=== PATIENT | female | born 1955 | race Caucasian/White ===

== ENCOUNTER 2016-11-15 02:20 | Inpatient (IN) | payer OTHER ==
[~2016-11-15] VITALS: Ht 152.4 cm; Wt 66.7 kg
[~2016-11-15 02:20] MED LIST: AMLODIPINE5 M1 PO; ASPIR 8181 MG PO; ATENOLOL100 MG PO; AUG500 PO; AUGMENTIN PO; COZAAR50 MG PO; LIPITOR80 MG PO; ULT50 PO
[2016-11-15 03:59] LABS: PLATELET COUNT 271 x10^3mcL (130-400)
[2016-11-15 04:02] LABS: BASOPHIL % 0.2 % (0-2); RED CELL DISTRIBUTION WIDTH 13.2 % (11.5-14.5)
[2016-11-15 04:10] LABS: CALCIUM 9.7 mg/dL (8.5-10.1); CARBON DIOXIDE 29.6 mmol/L (21-32); CHLORIDE SERUM 104 mmol/L (98-107); CREATININE SERUM 0.5 mg/dL (0.6-1.0); GFR1 > 60 mL/min; GLUCOSE SERUM 101 mg/dL (74-106); POTASSIUM SERUM 3.7 mmol/L (3.5-5.1); SODIUM SERUM 140 mmol/L (136-145)
[2016-11-15 04:14] LABS: ALKALINE PHOSPHATASE 87 U/L (46-116); ALT/SGPT 26 U/L (14-59); AST/SGOT 24 U/L (15-37); BILIRUBIN TOTAL 0.54 mg/dL (0.20-1.00); LIPASE 148 IU/L (73-393); TOTAL PROTEIN, SERUM 6.8 g/dL (6.4-8.2)
[2016-11-15 04:19] LABS: microscopic required? YES; urine erythrocyte TRACE (NEGATIVE)
[2016-11-15 04:22] LABS: ALBUMIN 3.1 g/dL (3.4-5.0)
[2016-11-15 06:41] VITALS: BP 131/65
[2016-11-15 07:12] LABS: T3 TOTAL 6.52 ng/mL
[2016-11-15 07:13] LABS: CHOLESTEROL/HDL RATIO 1.9
[2016-11-15 08:04] VITALS: BP 129/66
[2016-11-15 09:13] LABS: FREE T4 11.43 ng/dL (0.76-1.46); FREE THYROXINE INDEX 12.7 ug/dL (1.4-4.5)
[2016-11-15 09:14] LABS: T4(THYROXINE) 26.4 ug/dL (4.7-13.3)
[2016-11-15 14:00] VITALS: BP 135/73
[2016-11-15 17:33] LABS: IRON 26 ug/dL (50-170); TOTAL IRON BINDING CAPACITY 235 ug/dL (250-450)
[2016-11-15 18:30] VITALS: BP 157/77
[2016-11-16 05:52] VITALS: BP 132/67
[2016-11-16 06:30] LABS: BASOPHIL % 0.4 % (0-2); PLATELET COUNT 222 x10^3mcL (130-400); RED CELL DISTRIBUTION WIDTH 13.1 % (11.5-14.5)
[2016-11-16 06:58] LABS: CALCIUM 8.9 mg/dL (8.5-10.1); CHLORIDE SERUM 107 mmol/L (98-107); CREATININE SERUM 0.4 mg/dL (0.6-1.0); GFR1 > 60 mL/min; GLUCOSE SERUM 81 mg/dL (74-106); MAGNESIUM 1.4 mg/dL (1.8-2.4); PHOSPHOROUS 4.8 mg/dL (2.5-4.9); POTASSIUM SERUM 3.3 mmol/L (3.5-5.1); SODIUM SERUM 143 mmol/L (136-145)
[2016-11-16 09:27] VITALS: BP 127/67
[2016-11-16 14:53] VITALS: BP 128/60
[2016-11-16 16:30] VITALS: BP 129/64
[2016-11-16 20:05] VITALS: BP 134/73
[2016-11-17 05:43] VITALS: BP 125/72
[2016-11-17 07:45] LABS: BASOPHIL % 0.4 % (0-2); PLATELET COUNT 211 x10^3mcL (130-400); RED CELL DISTRIBUTION WIDTH 13.4 % (11.5-14.5)
[2016-11-17 08:30] LABS: CALCIUM 9.4 mg/dL (8.5-10.1); CARBON DIOXIDE 25.5 mmol/L (21-32); CHLORIDE SERUM 106 mmol/L (98-107); CREATININE SERUM 0.4 mg/dL (0.6-1.0); GFR1 > 60 mL/min; GLUCOSE SERUM 81 mg/dL (74-106); MAGNESIUM 1.4 mg/dL (1.8-2.4); PHOSPHOROUS 5.5 mg/dL (2.5-4.9); SODIUM SERUM 144 mmol/L (136-145)
[2016-11-17 09:16] VITALS: BP 126/73
[2016-11-17 13:22] VITALS: BP 127/73
[2016-11-17] MEDS ORDERED: LEVAQUIN250 M1 PO (17:08)
[2016-11-17] MEDS ORDERED: LAC PO (17:08)
[2016-11-17 17:09] VITALS: BP 127/73
[2016-11-17] MEDS ORDERED: ZOFRAN8 MG PO (17:09)
[2016-11-17] MEDS ORDERED: GOOD NEIGHBOR P20 M2 PO (17:09)
[2016-11-17] MEDS ORDERED: LOPERAMIDE HCL2 MG PO (17:14)
[2016-11-17] MEDS ORDERED: AMLODIPINE BES2.5 M1 PO (17:56)
[2016-11-17] MEDS ORDERED: COZ25 PO (18:10)
== END 2016-11-17 18:45 | disposition home or self-care (01) | DRG 391 ==
LOC: ED 02:20 → DU 05:02
PROVIDERS: Emergency Medicine; Internal Medicine Cardiovascular Disease; ADMIT Family Medicine
PROC: 30233N1 Transfusion of Nonautologous Red Blood Cells into Peripheral Vein, Percutaneous Approach (ICD-10-PCS; principal; 2016-11-15)
DX: K21.9 Gastro-esophageal reflux disease without esophagitis (principal); N17.0 Acute kidney failure with tubular necrosis; E43 Unspecified severe protein-calorie malnutrition; I50.43 Acute on chronic combined systolic (congestive) and diastolic (congestive) heart failure; N39.0 Urinary tract infection, site not specified; M94.0 Chondrocostal junction syndrome [Tietze]; E05.90 Thyrotoxicosis, unspecified without thyrotoxic crisis or storm; A08.4 Viral intestinal infection, unspecified; N30.90 Cystitis, unspecified without hematuria; D64.9 Anemia, unspecified; I11.0 Hypertensive heart disease with heart failure; E78.5 Hyperlipidemia, unspecified; E83.39 Other disorders of phosphorus metabolism; K52.9 Noninfective gastroenteritis and colitis, unspecified; Z82.61 Family history of arthritis; Z90.49 Acquired absence of other specified parts of digestive tract
CPT/HCPCS: 83880; 84439; A9500; J0696; J1644; J2270; J2405; J2785; J3475; J7030; J7050; P9016; Q0092

== ENCOUNTER 2018-08-25 18:44 | Observation (INO) | payer OTHER ==
[~2018-08-25] VITALS: Ht 162.6 cm; Wt 73.2 kg
[~2018-08-25 18:44] MED LIST changes: +AMLODIPINE BES2.5 M1 PO; +COZ25 PO; +GOOD NEIGHBOR P20 M2 PO; +LAC PO; +LEVAQUIN250 M1 PO; +LOPERAMIDE HCL2 MG PO; +ZOFRAN8 MG PO
[2018-08-25 19:42] LABS: BASOPHIL % 0.5 % (0-2); PLATELET COUNT 329 x10^3mcL (130-400); RED CELL DISTRIBUTION WIDTH 14.3 % (11.5-14.5)
[2018-08-25 19:44] LABS: CARBON DIOXIDE 28.7 mmol/L (21-32); CHLORIDE SERUM 97 mmol/L (98-107); CREATININE SERUM 0.6 mg/dL (0.6-1.0); GFR1 > 60 mL/min; GLUCOSE SERUM 111 mg/dL (74-106); POTASSIUM SERUM 3.3 mmol/L (3.5-5.1); SODIUM SERUM 131 mmol/L (136-145)
[2018-08-25 19:49] LABS: ALBUMIN 3.9 g/dL (3.4-5.0); ALKALINE PHOSPHATASE 110 U/L (46-116); ALT/SGPT 23 U/L (14-59); AST/SGOT 17 U/L (15-37); BILIRUBIN TOTAL 0.2 mg/dL (0.20-1.00); TOTAL PROTEIN, SERUM 8.6 g/dL (6.4-8.2)
[2018-08-25] MEDS ORDERED: METOPROLOL TART50 MG PO (20:35)
[2018-08-25] MEDS ORDERED: NOR5 PO (20:36)
[2018-08-25] MEDS ORDERED: LOSARTAN POTASS1 TAB PO (20:36)
[2018-08-25 21:44] VITALS: BP 161/97
[2018-08-25 21:50] VITALS: Ht 162.6 cm; Wt 73.2 kg
[2018-08-26 05:47] VITALS: BP 134/69
[2018-08-26 07:38] LABS: BASOPHIL % 0.3 % (0-2); PLATELET COUNT 284 x10^3mcL (130-400)
[2018-08-26 07:50] LABS: RED CELL DISTRIBUTION WIDTH 14.6 % (11.5-14.5)
[2018-08-26 07:54] LABS: CALCIUM 8.7 mg/dL (8.5-10.1); CARBON DIOXIDE 25.6 mmol/L (21-32); CHLORIDE SERUM 94 mmol/L (98-107); CREATININE SERUM 0.7 mg/dL (0.6-1.0); GFR1 > 60 mL/min; GLUCOSE SERUM 96 mg/dL (74-106); MAGNESIUM 1.9 mg/dL (1.8-2.4); POTASSIUM SERUM 3.4 mmol/L (3.5-5.1); SODIUM SERUM 131 mmol/L (136-145)
[2018-08-26 09:02] VITALS: BP 131/76
[2018-08-26 13:11] VITALS: BP 144/80
[2018-08-26 15:28] VITALS: BP 144/80
[2018-08-26 16:43] VITALS: BP 151/83
== END 2018-08-26 16:53 | disposition home or self-care (01) | DRG 880 ==
LOC: ED 18:44 → DU 20:59
PROVIDERS: Emergency Medicine; Internal Medicine Pulmonary Disease; ADMIT Internal Medicine Pulmonary Disease
DX: F41.9 Anxiety disorder, unspecified (principal); I10 Essential (primary) hypertension; E78.5 Hyperlipidemia, unspecified; M19.90 Unspecified osteoarthritis, unspecified site
CPT/HCPCS: 83880; G0378; J1644; Q0092